=== PATIENT | male | born 1965 | race Caucasian/White ===

== ENCOUNTER 2017-04-02 22:21 | Emergency (ER) | payer OTHER ==
[~2017-04-02] VITALS: Ht 175.3 cm; Wt 55.0 kg
[~2017-04-02 22:21] MED LIST: AMOX500T PO; IBUP400T20 PO; OMEP20.62 PO
[2017-04-02 22:34] VITALS: BP 114/71; PULSE 90; RESP 14; TEMP 97.4; O2SAT 96
[2017-04-02] MEDS ORDERED: SODIUM CHLOR 0.9% 1000 ML INJ 1,000 ML IV ONE (22:36)
[2017-04-02 22:43] VITALS: BP 117/75; PULSE 91; RESP 18; O2SAT 96
[2017-04-02] MEDS ORDERED: SODIUM CHLORIDE 0.9% FLUSH 10 ML FLUSH IVF PRN (22:45)
--- NOTE | 2017-04-02 22:49 | PD ---
HPI Chief Complaint: seizure Time Seen by Provider: 22:36 Travel History International Travel<30 days: No Contact w/Intl Traveler<30days: No Traveled to known affect area: No History of Present Illness HPI [id number]-year-old male who is a long-term care patient at local rehabilitation facility presents to the emergency department after rehab facility staff reportedly noted him to have a generalized seizure of approximate 5 minutes duration with reported concern of possible aspiration. Post event room air O2 saturation was reportedly 88% with reported congested and gurgling respirations per paperwork provided from rehab facility. 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 Patient is currently on Keppra and Dilantin. No reported recent febrile illness. No noted/reported trauma. Patient is on Coumadin therapy. [facility] Past Medical History Narrative Medical Hypertension GERD seizure left CVA with dysphasia and aphasia left hemiparesis contracture prior tracheostomy acute and chronic respiratory failure with hypoxia PEG tube; prior alcohol abuse; nursing notes reviewed Cancer: No Cardiovascular Problems: No Chemotherapy: No Cirrhosis: Yes Diabetes: No Diminished Hearing: No Endocrine: No Gastrointestinal Disorders: No GERD: Yes Genitourinary: No Immune Disorder: No Implanted Vascular Access Dvce: No Musculoskeletal: No Neurologic: No Psychiatric: No Reproductive: No Respiratory: No Radiation Therapy: No Seizures: No Past Surgical History Abdominal Surgery: No Cardiac Surgery: No Ear Surgery: No Endocrine Surgery: No Eye Surgery: No Gynecologic Surgery: No Neurologic Surgery: No Oral Surgery: No Thoracic Surgery: Yes (punctured lung 10-15 years ago) Other Surgery: Yes (L INGUINAL HERNIA REPAIR) Social History Alcohol Use: Yes (DAILY) Tobacco Use: Yes (3/4 PPD) Substance Use: Yes (CHRONIC ALCOHOL) Allergies-Medications (Allergen,Severity, Reaction): Coded Allergies: fish oil (Unverified Allergy, Severe, 11/10/16) grass pollen (Unverified Allergy, Severe, 11/10/16) Reported Meds & Prescriptions Reported Meds & Active Scripts Active Reported Metoprolol Tartrate 50 Mg Tab 50 Mg G-TUBE BID Keppra Liq (Levetiracetam) 500 Mg/5 Ml Soln 500 Mg G-TUBE Q8HR Hyoscyamine (Hyoscyamine Sulfate) 0.125 Mg Tab 0.125 Mg G-TUBE BID Dilantin-125 Liq (Phenytoin) 125 Mg/5 Ml Susp 250 Mg G-TUBE Q12HR Coumadin (Warfarin) 5 Mg Tab 5 Mg G-TUBE DAILY Bactroban Topical (Mupirocin) 22 Gm Cream 1 Applic TOPICAL TID Baclofen 10 Mg Tab 10 Mg PO TID [atropine sulfate henna] 1 Drop PO Q12HR PRN Albuterol Neb (Albuterol Sulfate) 0.63 Mg/3 Ml Neb 0.63 Mg NEB Q4HR NEB PRN Tylenol (Acetaminophen) 325 Mg Tab 650 Mg G-TUBE Q4H PRN Review of Systems ROS Limitations: Clinical Condition, Speech Impaired, Poor Historian Except as stated in HPI: all other systems reviewed are Neg Physical Exam Narrative GENERAL: Thin contractured adult male in no acute distress no respiratory distress tracks activity with eye movement; non-verbal. SKIN: Warm and dry. HEAD: Normocephalic. EYES: No scleral icterus. No injection or drainage. NECK: Supple, trachea midline. No JVD or lymphadenopathy. CARDIOVASCULAR: Regular rate and rhythm without murmurs, gallops, or rubs. RESPIRATORY: Breath sounds equal bilaterally. No accessory muscle use. GASTROINTESTINAL: Abdomen soft, non-tender, nondistended. MUSCULOSKELETAL: No cyanosis, or edema. BACK: Nontender without obvious deformity. No CVA tenderness. Data Data Last Documented VS Vital Signs Date Time Temp Pulse Resp B/P (MAP) Pulse Ox O2 Delivery O2 Flow Rate FiO2 04/02/17 22:43 91 18 117/75 (89) 96 Room Air 04/02/17 22:34 97.4 Orders Orders Electrocardiogram (04/02/17 22:36) Complete Blood Count With Diff (04/02/17 22:36) Comprehensive Metabolic Panel (04/02/17 22:36) Magnesium (Mg) (04/02/17 22:36) Ckmb (Isoenzyme) Profile (04/02/17 22:36) Troponin I (04/02/17 22:36) Act Partial Throm Time (Ptt) (04/02/17 22:36) Prothrombin Time / Inr (Pt) (04/02/17 22:36) Urinalysis - C+S If Indicated (04/02/17 22:36) Chest, Single Ap (04/02/17 22:36) Ct Brain W/O Iv Contrast(Rout) (04/02/17 22:36) Ecg Monitoring (04/02/17 22:36) Iv Access Insert/Monitor (04/02/17 22:36) Oximetry (04/02/17 22:36) Sodium Chloride 0.9% Flush (Ns Flush) (04/02/17 22:45) Sodium Chlor 0.9% 1000 Ml Inj (Ns 1000 M (04/02/17 22:36) Phenytoin (Dilantin) (04/02/17 22:36) Urine Culture (04/02/17 23:59) Phenytoin Liq (Dilantin Liq) (04/03/17 01:45) Ceftriaxone Inj (Rocephin Inj) (04/03/17 01:45) Labs Laboratory Tests Test 04/02/17 22:40 04/02/17 23:59 White Blood Count 12.4 TH/MM3 Red Blood Count 4.82 MIL/MM3 Hemoglobin 15.6 GM/DL Hematocrit 46.6 % Mean Corpuscular Volume 96.7 FL Mean Corpuscular Hemoglobin 32.3 PG Mean Corpuscular Hemoglobin Concent 33.4 % Red Cell Distribution Width 12.7 % Platelet Count 412 TH/MM3 Mean Platelet Volume 8.1 FL Neutrophils (%) (Auto) 77.6 % Lymphocytes (%) (Auto) 15.4 % Monocytes (%) (Auto) 6.1 % Eosinophils (%) (Auto) 0.1 % Basophils (%) (Auto) 0.8 % Neutrophils # (Auto) 9.6 TH/MM3 Lymphocytes # (Auto) 1.9 TH/MM3 Monocytes # (Auto) 0.8 TH/MM3 Eosinophils # (Auto) 0.0 TH/MM3 Basophils # (Auto) 0.1 TH/MM3 CBC Comment DIFF FINAL Differential Comment Prothrombin Time 17.3 SEC Prothromb Time International Ratio 1.7 RATIO Activated Partial Thromboplast Time 37.5 SEC Blood Urea Nitrogen 27 MG/DL Creatinine 1.12 MG/DL Random Glucose 140 MG/DL Total Protein 8.2 GM/DL Albumin 3.9 GM/DL Calcium Level 9.4 MG/DL Magnesium Level 2.2 MG/DL Alkaline Phosphatase 199 U/L Aspartate Amino Transf (AST/SGOT) 31 U/L Alanine Aminotransferase (ALT/SGPT) 44 U/L Total Bilirubin 0.3 MG/DL Sodium Level 140 MEQ/L Potassium Level 3.6 MEQ/L Chloride Level 98 MEQ/L Carbon Dioxide Level 33.7 MEQ/L Anion Gap 8 MEQ/L Estimat Glomerular Filtration Rate 69 ML/MIN Total Creatine Kinase 73 U/L Troponin I LESS THAN 0.02 NG/ML Phenytoin (Dilantin) Level 9.4 MCG/ML Urine Color YELLOW Urine Turbidity HAZY Urine pH 7.5 Urine Specific [place] 1.019 Urine Protein 30 mg/dL Urine Glucose (UA) NEG mg/dL Urine Ketones NEG mg/dL Urine Occult Blood NEG Urine Nitrite NEG Urine Bilirubin NEG Urine Urobilinogen LESS THAN 2.0 MG/DL Urine Leukocyte Esterase NEG Urine RBC 1 /hpf Urine WBC 2 /hpf Urine Squamous Epithelial Cells <1 /hpf Urine Amorphous Sediment FEW Urine Bacteria MANY /hpf Urine Hyaline Casts 1 /lpf Urine Mucus FEW /lpf Microscopic Urinalysis Comment [facility] Medical Decision Making Medical Screen Exam Complete: Yes Emergency Medical Condition: Yes (Digit go to see her family) Medical Record Reviewed: Yes Interpretation(s) EKG: Sinus rhythm rate [address]-T changes no acute ST elevation or injury pattern CBC & BMP Diagram 04/02/17 22:40 Total Protein 8.2, Albumin 3.9, Calcium Level 9.4, Magnesium Level 2.2, Alkaline Phosphatase 199 H, Aspartate Amino Transf (AST/SGOT) 31, Alanine Aminotransferase (ALT/SGPT) 44, Total Bilirubin 0.3 dilantin: 9.4, mildly subtherapeutic Differential Diagnosis Seizure, drug rash, subtherapeutic anticoagulation, intracranial bleed, coagulopathy, sepsis, aspiration pneumonia Narrative Course 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 and continuous pulse oximetry room air O2 saturation 96% and patient is in no respiratory distress with clear lung sounds to auscultation; specimens collected and sent for resulting; EKG performed which reveals no acute ST elevation or injury pattern Patient resting comfortably no seizure activity noted some: Labs pending CT brain noncontrast reveals no acute process no bleed and chronic encephalomalacia INR is mildly subtherapeutic at 1.7 Patient remains asymptomatic with no respiratory distress no congestion O2 saturations 96% on room air to 97% on room air Dilantin level identified to be mildly subtherapeutic at 9.4; patient administered Dilantin via PEG tube This point time patient appears stable is unclear patient had knee aspiration event or not does not appear to be any respiratory distress O2 saturations have been stable and patient with known seizure disorder with one seizure event appears to be stable for return to rehabilitation facility at this time. Urinalysis resulted and remarkable for many bacteria patient given Rocephin 1 g IV piggyback as well as prescription for Cipro Patient has been monitored in the emergency department patient remains with room air O2 saturations 96-98% and no respiratory distress afebrile and well be returned back to rehabilitation facility. Diagnosis Primary Impression: Seizure Additional Impressions: Seizure secondary to subtherapeutic anticonvulsant medication UTI (urinary tract infection) Qualified Codes: N39.0 - Urinary tract infection, site not specified Referrals: Primary Care Physician 1 day Patient Instructions: General Instructions Med/Other Pt SpecificInfo: Prescription(s) given Scripts Ciprofloxacin Liq (Cipro Liq) 500 Mg/5 Ml Susp 500 MG PEG BID for Infection for 10 Days, #100 ML 0 Refills Prov: Indiana Farrar MD 04/03/17 Disposition: 03 DISCHARGE TO SNF Condition: Stable Indiana Farrar MD Apr 02, 2017 22:49
--- NOTE | 2017-04-02 22:56 | RADRPT ---
EXAM DATE/TIME: 04/02/2017 22:46 [facility] COMPARISON: No previous studies available for comparison. INDICATIONS : Syncope. MEDICAL HISTORY : Gastroesophageal reflux disease. Cirrhosis. Cerebrovascular accident. SURGICAL HISTORY : None. ENCOUNTER: Initial ACUITY: 1 day PAIN SCORE: Non-responsive. LOCATION: Bilateral chest FINDINGS: A single view of the chest demonstrates the lungs to be symmetrically aerated without evidence of mas s, infiltrate or effusion. The cardiomediastinal contours are unremarkable. Osseous structures are intact. CONCLUSION: No acute disease. Carlton Delatorre MD on April 02, 2017 at 22:54 Board Certified Radiologist. This report was verified electronically.
--- NOTE | 2017-04-02 23:10 | RADRPT ---
EXAM DATE/TIME: 04/02/2017 22:44 [facility] COMPARISON: No previous studies available for comparison. INDICATIONS : Altered mental status. RADIATION DOSE: 56.35 CTDIvol (mGy) MEDICAL HISTORY : Non-responsive. SURGICAL HISTORY : Non-responsive. ENCOUNTER: Initial ACUITY: 1 day PAIN SCALE: Non-responsive LOCATION: cranial TECHNIQUE: Multiple contiguous axial images were obtained of the head. Using automated exposure control and adj ustment of the mA and/or kV according to patient size, radiation dose was kept as low as reasonably a chievable to obtain optimal diagnostic quality images. DICOM format image data is available electro nically for review and comparison. FINDINGS: CEREBRUM: Prominent bilateral frontal lobe encephalomalacia indicating old insults. Extraocular dilatation of t he anterior horns of the lateral ventricles. Coarse calcification also noted in the frontal lobes. No evidence of acute intracranial hemorrhage or extra axial fluid collection. No mass effect or midline shift. Chronic ischemic change also noted in the right side of the britta. POSTERIOR FOSSA: The cerebellum and brainstem are intact. The 4th ventricle is midline. The cerebellopontine angle i s unremarkable. EXTRACRANIAL: The visualized portion of the orbits is intact. SKULL: The calvaria is intact. No evidence of skull fracture. CONCLUSION: Large areas of bilateral frontal lobe encephalomalacia indicating old insults. No acute intracranial findings identified. Jem Bella MD on April 02, 2017 at 23:04 Board Certified Radiologist. This report was verified electronically.
[2017-04-02 23:27] LABS: AUTOMATED NEUTROPHIL # 9.6 TH/MM3 (1.8-7.7); BASOPHIL # 0.1 TH/MM3 (0-0.2); BASOPHIL % 0.8 % (0.0-2.0); EOSINOPHIL % 0.1 % (0.0-4.0); HEMATOCRIT 46.6 % (39.0-51.0); HEMOGLOBIN 15.6 GM/DL (13.0-17.0); LYMPH % 15.4 % (9.0-44.0); LYMPHOCYTE # 1.9 TH/MM3 (1.0-4.8); MEAN CELL VOLUME 96.7 FL (80.0-100.0); MEAN CORPUSCULAR HEMOGLOBIN 32.3 PG (27.0-34.0); MEAN CORPUSCULAR HGB CONC 33.4 % (32.0-36.0); MEAN PLATELET VOLUME 8.1 FL (7.0-11.0); MONO % 6.1 % (0.0-8.0); MONOCYTE # 0.8 TH/MM3 (0-0.9); NEUT % 77.6 % (16.0-70.0); PLATELET COUNT 412 TH/MM3 (150-450); RED BLOOD COUNT 4.82 MIL/MM3 (4.50-5.90); RED CELL DISTRIBUTION WIDTH 12.7 % (11.6-17.2); WHITE BLOOD COUNT 12.4 TH/MM3 (4.0-11.0)
[2017-04-02 23:38] LABS: ALBUMIN 3.9 GM/DL (3.4-5.0); ALT (GPT) 44 U/L (12-78); AST (GOT) 31 U/L (15-37); BICARBONATE 33.7 MEQ/L (21.0-32.0); BLOOD UREA NITROGEN 27 MG/DL (7-18); CALCIUM 9.4 MG/DL (8.5-10.1); CHLORIDE 98 MEQ/L (98-107); CREATININE 1.12 MG/DL (0.60-1.30); GLOMERULAR FILTRATION RATE 69 ML/MIN (>89); GLUCOSE,RANDOM 140 MG/DL (74-106); INTERNATIONAL NORMALIZED RATIO 1.7 RATIO; MAGNESIUM 2.2 MG/DL (1.5-2.5); PROTHROMBIN TIME - PATIENT 17.3 SEC (9.8-11.6); SODIUM (NA) 140 MEQ/L (136-145)
[2017-04-02 23:41] LABS: ALKALINE PHOSPHATASE 199 U/L (45-117); PHENYTOIN (DILANTIN) 9.4 MCG/ML (10.0-20.0); TOTAL BILIRUBIN ADULT 0.3 MG/DL (0.2-1.0); TOTAL PROTEIN 8.2 GM/DL (6.4-8.2); TROPONIN I LESS THAN 0.02 NG/ML (0.02-0.05)
[2017-04-03 00:48] LABS: AMORPHOUS SEDIMENT, URINE FEW; BACTERIA, URINE MANY /hpf; BILIRUBIN, URINE NEG (NEG); BLOOD, URINE NEG (NEG); GLUCOSE,URINE NEG (NEG); HYALINE CAST, URINE 1 /lpf (RARE); KETONE, URINE NEG (NEG); MUCUS URINE FEW /lpf (OCC); NITRITE,URINE NEG (NEG); PH, URINE 7.5 (5.0-8.5); SQUAMOUS EPITHELIAL CELL URINE <1 /hpf (0-5); URINE COLOR YELLOW (YELLW/STRAW); URINE LEUKOCYTE ESTERASE NEG (NEG)
[2017-04-03] MEDS ORDERED: HYOS1TAB9 G-TUBE (00:54)
[2017-04-03] MEDS ORDERED: BACL10TA PO (00:54)
[2017-04-03] MEDS ORDERED: LEVE500S G-TUBE (00:54)
[2017-04-03] MEDS ORDERED: DILA125S G-TUBE (00:54)
[2017-04-03] MEDS ORDERED: ATROPINE SULFATE PO (00:54)
[2017-04-03] MEDS ORDERED: ALBU0.63 NEB (00:54)
[2017-04-03] MEDS ORDERED: METO50TA G-TUBE (00:54)
[2017-04-03] MEDS ORDERED: TYLE325T G-TUBE (00:54)
[2017-04-03] MEDS ORDERED: MUPI2%T TOPICAL (00:54)
[2017-04-03] MEDS ORDERED: COUM5TAB G-TUBE (00:54)
[2017-04-03] MEDS ORDERED: CIPR500S2 PEG (01:42)
[2017-04-03] MEDS ORDERED: PHENYTOIN SUSP 100 MG/4 ML CUP G-TUBE ONE (01:45)
[2017-04-03] MEDS ORDERED: cefTRIAXone INJ 1,000 MG in SODIUM CHLORIDE 0.9% INJ 100 ML IV ONE (01:45)
[2017-04-03 02:00] VITALS: BP 111/73; PULSE 81; RESP 15; O2SAT 99
[2017-04-03 04:16] VITALS: BP 124/75
[2017-04-03] MEDS ORDERED: DOCU8.6T G-TUBE (05:07)
[2017-04-03] MEDS ORDERED: DILT0.05 G-TUBE (05:07)
[2017-04-03] MEDS ORDERED: MULT-65 G-TUBE (05:07)
[2017-04-03] MEDS ORDERED: ZOFR4TAB3 SL (05:07)
[2017-04-03] MEDS ORDERED: SODI1TAB G-TUBE (05:07)
[2017-04-03] MEDS ORDERED: NYST15T TOPICAL (05:07)
[2017-04-03] MEDS ORDERED: PROM1SUP7 RECTAL (05:07)
[2017-04-03] MEDS ORDERED: POLY17S G-TUBE (05:07)
--- NOTE | 2017-04-03 12:37 | EKG ---
Date Performed: 04/02/2017 Time Performed: 22:30:58 PTAGE: 51 years EKG: Sinus rhythm POSSIBLE LEFT ATRIAL ENLARGEMENT INCOMPLETE RIGHT BUNDLE BRANCH BLOCK BORDERLINE ECG BORDERLINE LEFT AXIS DEVIATION Compared to PREVIOUS TRACING , axis slightly more leftward, otherwise no significant change. PREVIOUS TRACIN05/29/2011 08.55 DOCTOR: Lennox Hope Interpretating Date/Time 04/03/2017 12:36:49
== END 2017-04-03 05:00 ==
LOC: NEPC 22:21
DX: G40.909 Epilepsy, unspecified, not intractable, without status epilepticus (principal); N39.0 Urinary tract infection, site not specified; I45.10 Unspecified right bundle-branch block; I69.954 Hemiplegia and hemiparesis following unspecified cerebrovascular disease affecting left non-dominant side; I10 Essential (primary) hypertension; K21.9 Gastro-esophageal reflux disease without esophagitis; N18.9 Chronic kidney disease, unspecified; K74.60 Unspecified cirrhosis of liver; F17.200 Nicotine dependence, unspecified, uncomplicated
CPT/HCPCS: 70450; 71045; 80053; 80185; 81001; 82550; 83735; 84484; 85025; 85610; 85730; 87086; 93005; 96361; 96365; 99285; J0696; J7030